=== PATIENT | female | born 2005 | race Caucasian/White ===

== ENCOUNTER 2025-07-20 09:22 | Emergency (ER) | payer SELFPAY | END 2025-07-20 12:12 | disposition home or self-care (01) | LOC: JP.ED 09:22 | DX: O20.9 Hemorrhage in early pregnancy, unspecified (principal); Z3A.01 Less than 8 weeks gestation of pregnancy | CPT/HCPCS: 36415; 84702; 86900; 86901; 99283; 99284 ==